=== PATIENT | female | born 1950 | race Caucasian/White ===

== ENCOUNTER 2022-07-17 09:34 | Emergency (ER) | payer BC, MEDICARE ==
[2022-07-17 10:36] LABS: TROPONIN I HIGH SENSITIVITY 7.9 pg/mL (<=60.3)
[2022-07-17] MEDS ORDERED: MVI, Adult with Vitamin K 10 ML, Thiamine 100 MG, Folic Acid 1 MG, Magnesium Sulfate 2 ... IV ONE ×5 (11:30)
== END 2022-07-17 14:24 | disposition home or self-care (01) ==
LOC: JP.ED 09:34
DX: R13.14 Dysphagia, pharyngoesophageal phase (principal); Z91.011 Allergy to milk products; Z91.040 Latex allergy status; Z79.01 Long term (current) use of anticoagulants; Z79.82 Long term (current) use of aspirin; Z79.899 Other long term (current) drug therapy
CPT/HCPCS: 36415; 80048; 84484; 85025; 96365; 96366; 99284; J3411; J3475; J7120; J3490

== ENCOUNTER 2022-07-18 06:41 | Day surgery (SDC) | payer MEDICARE ==
[2022-07-18] MEDS ORDERED: fentaNYL 50 MCG/ML SDV ONE (08:38)
[2022-07-18] MEDS ORDERED: Midazolam 1 MG/ML 2 ML SDV ONE ×2 (08:38→09:43)
[2022-07-18] MEDS ORDERED: Propofol 200 MG/20 ML SDV ONE (08:38)
[2022-07-18] MEDS ORDERED: Fluconazole/Normal Saline 400 MG in Premix Bag 1 BAG IV ONE (10:45)
== END 2022-07-18 13:13 | disposition home or self-care (01) ==
LOC: JP.SDS 06:41
PROVIDERS: ATTEND Surgery
DX: K21.00 Gastro-esophageal reflux disease with esophagitis, without bleeding (principal); K22.10 Ulcer of esophagus without bleeding; Z91.040 Latex allergy status; Z79.899 Other long term (current) drug therapy; Z91.011 Allergy to milk products; Z98.84 Bariatric surgery status
CPT/HCPCS: 43239; 87102; 87220; 88305; 88312; 88341; 88342; J1450; J2250; J2704; J3010